=== PATIENT | male | born 1940 | race African-American/Black ===

== ENCOUNTER 2016-03-18 06:35 | Day surgery (SDC) | payer OTHER, MEDICARE ==
[2016-03-16 12:27] VITALS: BMI 26.6
[2016-03-18] MEDS ORDERED: oxyCODONE HCL 10 MG SUSTAINED ACTING TABLET PO STA (06:49)
--- NOTE | 2016-03-18 06:49 | HP ---
History & Physical Update - History History: No Change - Physical Physical: No Change - Assessment Assessment: No Change - Plan Plan: No Change
[2016-03-18] MEDS ORDERED: methylPREDNISolone ACET (DEPO) 40 MG/1 ML VIAL ONE (07:03)
[2016-03-18] MEDS ORDERED: BUPIVACAINE HCL/PF 2.5 MG/ML - 30 ML VIAL IJ ONE (07:04)
[2016-03-18] MEDS ORDERED: GUM MASTIC/STORAX/MSAL/ALCOHOL 1 DRP DROPSBTL MC ONE (07:04)
[2016-03-18] MEDS ORDERED: THROMBIN (BOVINE) 5,000 UNIT VIAL TP ONE (07:05)
[2016-03-18 07:31] VITALS: TEMP 98.3
[2016-03-18] MEDS ORDERED: PROPOFOL 20 ML ONE ×3 (07:37)
--- NOTE | 2016-03-18 09:03 | CONSULT ---
Consultation: REQUESTING PROVIDER: Ovidio Beach (Vascular Surgery) CONSULT REQUEST: We have been asked to surgically evaluate this patient for LLE DVT. HISTORY OF PRESENT ILLNESS: 75 yo male w/ PMHx noted below. Comes to [facility] for scheduled b/l lumbar laminectomy (lumbar radiculopathy/stenosis) today. This morning when I went to interview patient, I discovered that the patient had LLE swelling. Patient states the swelling began four days ago. Upon further questioning, he states he's been relatively immobile secondary to spine pain radiating down right leg. He admits to some calf tenderness. Denies n/v/f/c, CP, palpitations, SOB, cough, JIMENEZ, hemoptysis or melena. PMHx: Lumbar stenosis, DM, HLD and BPH PSHx: Pilonidal Cyst Smoking: Denies Home MEDS: 3 Medication Instructions Recorded Glyburide/Metformin HCl 1 each PO BID 03/16/16 [Glyburide-Metformin 2.5-500 mg] Oxycodone HCl [Roxicodone -] 5 mg PO BID 03/16/16 ALLERGY: NKDA ROS: CONSTITUTIONAL: Absent: SEE ABOVE. Generalized weakness, malaise, loss of appetite, weight change CARDIOVASCULAR: Absent: SEE ABOVE. Syncope, irregular heart rate, lightheadedness RESPIRATORY: Absent: SEE ABOVE. Orthopnea, wheezing, stridor GASTROINTESTINAL:Absent: SEE ABOVE. Hematochezia GENITOURINARY: Absent: dysuria, frequency, urgency, hesitancy, hematuria, flank pain, genital pain MUSCULOSKELETAL: Absent: myalgia, arthralgia, joint swelling, neck pain SKIN: Absent: rash, itching, pallor HEMATOLOGIC/IMMUNOLOGIC: Absent: easy bleeding, easy bruising, lymphadenopathy, frequent infections NEUROLOGIC: Absent: headache, focal weakness, dizziness, seizure PSYCHIATRIC: Absent: anxiety, depression, suicidal or homicidal ideation, hallucinations. Last Vital Signs Temp Pulse Resp BP Pulse Ox 98.3 F 68 18 182/92 97 03/18/16 07:29 03/18/16 07:29 03/18/16 07:29 03/18/16 07:29 03/18/16 07:29 PE GENERAL: Awake, alert, and fully oriented, in no acute distress. HEAD: Normal with no signs of trauma. NECK: Normal ROM, supple without lymphadenopathy or JVD LUNGS: CTA b/l anteriorly HEART: RRR. No murmurs detected. ABDOMEN: Soft, NT, ND, normoactive bowel sounds. MUSCULOSKELETAL: Normal range of motion at all joints. No bony deformities or tenderness. No CVA tenderness. UPPER EXTREMITIES: 2+ pulses, warm, well-perfused. No cyanosis. Cap refill <2 seconds. No peripheral edema. LOWER EXTREMITIES: LLE swelling, mild mid-calf tender to palpation. + Pollo sign. +DP/PT. +1 edema NEUROLOGICAL: Normal speech, gait not observed. PSYCH: Cooperative. Good eye contact. Appropriate mood and affect. LABS: 03/18/16 07:17 POC Glucometer 181 LLE Duplex: (wet read): DVT extending proximal to popliteal Problem List - Problems (1) Deep vein thrombosis (DVT) of left lower extremity Assessment/Plan: Administered 1 dose of Elaquis now. Script for Elaquis 5 mg PO BID escribed. Patient to f/u w/ Dr. Ovidio Beach as out-patient Per Dr. Beach, patient should have IVC filter before spine surgery. Will discuss planning with both Drs. Beach and Ras. Above plan discussed with Dr. Beach and agrees. Code(s): I82.402 - ACUTE EMBOLISM AND THOMBOS UNSP DEEP VEINS OF L LOW EXTREM (2) Lumbar stenosis Assessment/Plan: Will reschedule Laminectomy at later date Code(s): M48.06 - SPINAL STENOSIS, LUMBAR REGION Visit type - Case Type Case Type: Scheduled Admission - New patient This patient is new to me today: Yes Date on this admission: 03/18/16
[2016-03-18 09:12] VITALS: BP 180/88; PULSE 66
[2016-03-18] MEDS ORDERED: APIXABAN 5 MG TABLET PO SCH (10:00)
== END 2016-03-18 09:14 | disposition home or self-care (01) ==
LOC: FASU 06:35
PROVIDERS: ATTEND Orthopaedic Surgery Orthopaedic Surgery of the Spine
PROC: 01NB0ZZ Release Lumbar Nerve, Open Approach (ICD-10-PCS; principal; 2016-03-18)
DX: M48.06 Spinal stenosis, lumbar region (principal); Z53.09 Procedure and treatment not carried out because of other contraindication; I82.402 Acute embolism and thrombosis of unspecified deep veins of left lower extremity; E11.9 Type 2 diabetes mellitus without complications; E78.5 Hyperlipidemia, unspecified; N40.0 Benign prostatic hyperplasia without lower urinary tract symptoms
CPT/HCPCS: 93971-TC

== ENCOUNTER 2016-04-08 09:41 | Day surgery (SDC) | payer OTHER, MEDICARE ==
[2016-04-05 14:52] VITALS: BMI 26.4
[2016-04-08] MEDS ORDERED: oxyCODONE HCL 10 MG SUSTAINED ACTING TABLET PO STA (09:56)
[2016-04-08] MEDS ORDERED: oxyCODONE HCL 10 MG SUSTAINED ACTING TABLET ONE (10:25)
--- NOTE | 2016-04-08 10:48 | HP ---
History & Physical Update - History History: No Change - Physical Physical: No Change - Assessment Assessment: No Change - Plan Plan: No Change
[2016-04-08] MEDS ORDERED: HEPARIN NA (PORCINE) 5,000 UNITS/ML 1ML VIAL ONE (10:51)
[2016-04-08] MEDS ORDERED: LIDOCAINE HCL 1%, 10 MG/ML (20ML VIAL) ONE (10:51)
[2016-04-08] MEDS ORDERED: methylPREDNISolone ACET (DEPO) 40 MG/1 ML VIAL ONE (10:51)
[2016-04-08] MEDS ORDERED: BUPIVACAINE HCL/PF 2.5 MG/ML - 30 ML VIAL IJ ONE (10:51)
[2016-04-08] MEDS ORDERED: THROMBIN (BOVINE) 5,000 UNIT VIAL TP ONE (10:51)
[2016-04-08] MEDS ORDERED: LIDOCAINE 1%-EPI 1:100,000 30 ML MDV IJ ONE (10:52)
[2016-04-08] MEDS ORDERED: MIDAZOLAM HCL 2 MG/2 ML SINGLE DOSE VIAL ONE ×2 (11:04→14:04)
[2016-04-08] MEDS ORDERED: BUPIVACAINE HCL/PF 0.5% (5MG/ML) 10 ML VIAL ONE (11:06)
[2016-04-08] MEDS ORDERED: LIDOCAINE HCL 1%, 10 MG/ML (50 mL VIAL) IJ ONE (13:43)
--- NOTE | 2016-04-08 14:04 | OP ---
Operative Note - Note: Operative Date: 04/08/16 Pre-Operative Diagnosis: DVT Operation: Insertion of IVC filter with venogram Post-Operative Diagnosis: Same as Pre-op Surgeon: Ovidio Beach Anesthesia: Spinal, Fractional Operative Report Dictated: Yes
[2016-04-08] MEDS ORDERED: LIDOCAINE 1%/EPI 1:100000 (50 ML MULTI DOSE VIAL) INF ONE (14:20)
[2016-04-08] MEDS ORDERED: IOHEXOL 300 MG/ML INFUS..BTL IV ONE (14:45)
[2016-04-08] MEDS ORDERED: oxyCODONE HCL 5 MG TABLET PO PRN (15:25)
[2016-04-08] MEDS ORDERED: PROMETHAZINE HCL 25 MG/1 ML VIAL IVPUSH PRN (15:25)
[2016-04-08] MEDS ORDERED: ONDANSETRON 4 MG/2 ML VIAL IVPUSH PRN (15:25)
[2016-04-08] MEDS ORDERED: LACTATED RINGERS SOLUTION 1,000 ML IV SCH (15:30)
[2016-04-08] MEDS ORDERED: GUM MASTIC/STORAX/MSAL/ALCOHOL 1 DRP DROPSBTL MC ONE (15:39)
[2016-04-08] MEDS ORDERED: BUPIVACAINE HCL 0.25% 125 MG/50 ML VIAL INF ONE (15:45)
[2016-04-08] MEDS ORDERED: methylPREDNISolone ACET (DEPO) 40 MG/1 ML VIAL IM ONE (15:46)
--- NOTE | 2016-04-08 15:58 | OP ---
Operative Note - Note: Operative Date: 04/08/16 Pre-Operative Diagnosis: Spinal stenosis L3-L5; lumbar radiculopathy Operation: Lumbar laminectomy L3-L5 Post-Operative Diagnosis: Same as Pre-op Surgeon: Adeel Mcginnis Information Technology Instructor: Hugo Alcantar Anesthesiologist/DEVICE ENGINEER: Sona Barcenas Anesthesia: Spinal Estimated Blood Loss (mls): 25 Fluid Volume Replaced (mls): 1,600 Operative Report Dictated: Yes
--- NOTE | 2016-04-08 15:59 | SURG ---
Surgery Multi Township Assessor Note Multi Township Assessor: Hugo Alcantar PA-C Date of Service: 04/08/16 Diagnosis: Spinal stenosis L3-L5; lumbar radiculopathy Procedure: Lumbar laminiectomy L3-L5 (bilateral) I was present for the entirety of the operative procedure. For further detail, please refer to operative report. Visit type - Case Type Case Type: Scheduled Admission - New patient This patient is new to me today: Yes Date on this admission: 04/08/16
[2016-04-08] MEDS ORDERED: ACETAMINOPHEN 1000 MG/100 ML VIAL (NON FORMULARY) IVPB ONE ×2 (16:01→16:12)
[2016-04-08] MEDS ORDERED: ACETAMINOPHEN INJECTION 100 ML IVPB ONE (16:07)
[2016-04-08 18:19] VITALS: PULSE 56; TEMP 97.5
[2016-04-08 20:02] VITALS: BP 136/78
--- NOTE | 2016-04-09 15:25 | OP ---
DATE OF OPERATION: 04/08/2016 PREOPERATIVE DIAGNOSIS: Spinal stenosis, L3-L4, L4-L5. POSTOPERATIVE DIAGNOSIS: Spinal stenosis, L3-L4, L4-L5. PROCEDURES PERFORMED: 1. Laminectomy, L3-L4, L4-L5. 2. Placement of inferior vena cava filter. SURGEONS: Adeel Mcginnis MD; Ovidio Beach DO SPEECH THERAPIST TECHNICIAN: KRISTINE Mcmanus ESTIMATED BLOOD LOSS: 50 mL INTRAVENOUS FLUIDS: Per Anesthesia. ANESTHESIA: Spinal. COMPLICATIONS: None. DISPOSITION: The patient was brought to the PACU in stable condition. INDICATIONS FOR SURGERY: The patient is a 75-year-old gentleman who had previously been scheduled for a laminectomy. On the day of surgery, he was noted to have a swollen leg. A duplex was performed which noted that he had a clot in his left leg. He was placed on Xarelto at that time. We discussed the matter with the vascular surgeons and the patient wanted to proceed with surgery. We discussed the placement of an IVC filter and taking him off of Xarelto. The risks and benefits of placement of the filter were discussed with both the patient and his and they consented to surgery. DESCRIPTION OF PROCEDURE: The patient was brought to the operating room by the Anesthesia staff. After appropriate patient identification was performed, spinal anesthesia was given. Dr. Beach performed the IVC filter placement and this will be dictated in a separate note. After the filter was placed, the patient was placed prone onto the Jere frame with all areas of bony prominences well padded at this time. At this time, two needles were placed into his back to александр off the L3 and L5 segment and an x-ray was taken to confirm this was correct. The needle was removed and 10 mL of lidocaine with epinephrine were injected into his back at this time. His back was prepped and draped in a sterile manner. At this point, a timeout was completed. An incision was made from the top of L4 down to the bottom of L5. Dissection was carried down to the fascia. The fascia was split open at this time and appropriate retractors were then placed in. A spinal needle was placed onto the L3 lamina to александр off the L3-4 level. An x-ray was taken to confirm this was correct. The needle was removed and the microscope was brought in. At this point, the interspinous ligament at L3-4 and L4-5 was removed. The spinous process of L4 was removed. A bur was used to remove the lamina of L4. The flavum was identified; it was removed. A complete decompression was performed at this point, such that by the end of the procedure, the L4 and the L5 nerve roots appeared to be well decompressed. All bleeding was well controlled at this time. Steroids was placed over the nerve root and Floseal was placed over that. The fascia was closed with a number 1 Vicryl suture. The subcutaneous tissue was closed with 2-0 Vicryl suture. The skin was closed with 3-0 Monocryl suture. Dermabond was applied. Steri-Strips were applied. A sterile dressing was applied. The patient was placed spine on the OR bed and brought to the PACU in stable condition. Cristobal EGAN/[id number] MTDD
== END 2016-04-08 19:50 | disposition home or self-care (01) ==
LOC: FASU 09:41
PROVIDERS: ATTEND Orthopaedic Surgery Orthopaedic Surgery of the Spine
PROC: 01NB0ZZ Release Lumbar Nerve, Open Approach (ICD-10-PCS; principal; 2016-04-08 11:30)
PROC: 06H03DZ Insertion of Intraluminal Device into Inferior Vena Cava, Percutaneous Approach (ICD-10-PCS; 2016-04-08 11:30)
DX: M48.06 Spinal stenosis, lumbar region (principal); I82.402 Acute embolism and thrombosis of unspecified deep veins of left lower extremity
CPT/HCPCS: 37191; 63047; 63048; C1880; 72100-TC; 76001-TC; 94760; J1644

== ENCOUNTER 2016-08-23 06:46 | Inpatient (IN) | payer OTHER, MEDICARE ==
[2016-08-13 16:02] VITALS: BMI 26.9
[2016-08-23] MEDS ORDERED: BUPIVACAINE HCL/PF 2.5 MG/ML - 30 ML VIAL IJ ONE (07:13)
[2016-08-23] MEDS ORDERED: GUM MASTIC/STORAX/MSAL/ALCOHOL 1 DRP DROPSBTL MC ONE (07:13)
[2016-08-23] MEDS ORDERED: oxyCODONE HCL 10 MG SUSTAINED ACTING TABLET PO ONE (07:26)
[2016-08-23] MEDS ORDERED: oxyCODONE HCL 10 MG SUSTAINED ACTING TABLET ONE (07:31)
[2016-08-23] MEDS ORDERED: MIDAZOLAM HCL 2 MG/2 ML SINGLE DOSE VIAL ONE (07:45)
[2016-08-23] MEDS ORDERED: SUCCINYLCHOLINE CHLORIDE 200 MG/10 ML VIAL ONE (07:46)
--- NOTE | 2016-08-23 07:58 | HP ---
History & Physical Update - History History: No Change - Physical Physical: No Change - Assessment Assessment: No Change - Plan Plan: No Change (SCD to RLE, pt iwth h/o of LLE DVT. On xarelto but held for 5 day. s/p IV filter)
[2016-08-23] MEDS ORDERED: ceFAZolin SODIUM 1 GM VIAL ONE (08:34)
[2016-08-23] MEDS ORDERED: LIDOCAINE 1%/EPI 1:100000 (50 ML MULTI DOSE VIAL) INF ONE (08:50)
[2016-08-23] MEDS ORDERED: PROPOFOL 20 ML ONE ×2 (10:47)
[2016-08-23] MEDS ORDERED: BUPIVACAINE HCL/PF 0.25% (2.5MG/ML) 10 ML VIAL IJ ONE (11:46)
[2016-08-23] MEDS ORDERED: ONDANSETRON 4 MG/2 ML VIAL IVPB PRN (12:38)
[2016-08-23] MEDS: ACETAMINOPHEN 1000 MG/100 ML VIAL (NON FORMULARY) IVPB ONE ×2 (12:53→16:53)
[2016-08-23] MEDS: diazePAM 5 MG TABLET PO ONE ×2 (12:54→13:48)
--- NOTE | 2016-08-23 12:54 | OP ---
Operative Note - Note: Operative Date: 08/23/16 Pre-Operative Diagnosis: lumbar spondylolithisthesis Operation: s/p L4-L5, L5-S1 decompression, fusion/instrumentation, transforaminal lumbar interbody fusion L4-L5, L5-S1 with allograft and neuromonitoring Post-Operative Diagnosis: Same as Pre-op Surgeon: Adeel Mcginnis Dryer Operator: Lauryn Brigdes Anesthesiologist/GROUNDS/MAINTENANCE SPECIALIST: Heidy Mcgill Anesthesia: Spinal Estimated Blood Loss (mls): 30 Fluid Volume Replaced (mls): 1,700 Operative Report Dictated: Yes
--- NOTE | 2016-08-23 12:56 | SURG ---
Surgery Egg Tester Note Egg Tester: Lauryn Bridges PA-C Date of Service: 08/23/16 Diagnosis: lumbar spondylolithisthesis Procedure: s/p L4-L5, L5-S1 decompression, fusion/instrumentation, transforaminal lumbar interbody fusion L4-L5, L5-S1 with allograft and neuromonitoring I was present for the entirety of the operative procedure. For further detail, please refer to operative report. Visit type - Case Type Case Type: Scheduled Admission - Emergency Emergency Visit: No - New patient This patient is new to me today: Yes Date on this admission: 08/23/16 - Critical Care Critical Care patient: No
[2016-08-23] MEDS: SODIUM CHLORIDE 1,000 ML IV SCH (13:48)
[2016-08-23] MEDS: oxyCODONE HCL 5 MG TABLET PO PRN (14:12)
[2016-08-23] MEDS: LACTATED RINGERS SOLUTION 1,000 ML IV SCH (14:14)
[2016-08-23] MEDS: traMADol HCL 50 MG TABLET PO PRN ×2 (16:42→20:57)
[2016-08-23] MEDS: CEFAZOLIN 1 GM/D5W 50 ML IVPB SCH (16:42)
[2016-08-23] MEDS: metFORMIN HCL 500 MG TABLET (FP) PO SCH (16:42)
[2016-08-23] MEDS: glyBURIDE 5 MG TABLET (UD) PO SCH (16:42)
[2016-08-23] MEDS: CYCLOBENZAPRINE HCL 10 MG TABLET (FP) PO PRN (20:57)
[2016-08-23] MEDS: ACETAMINOPHEN 325 MG TABLET (FP) PO SCH (20:59)
[2016-08-23] MEDS ORDERED: PATIENT'S OWN MEDICATION (NON-FORMULARY) (Glyburide/Metformin Hcl [Glyburide-Metformin 2.5 PO SCH (22:00)
[2016-08-24] MEDS: oxyCODONE HCL 5 MG TABLET PO PRN ×3 (00:04→11:20)
[2016-08-24] MEDS: CEFAZOLIN 1 GM/D5W 50 ML IVPB SCH (00:04)
[2016-08-24] MEDS: ACETAMINOPHEN 325 MG TABLET (FP) PO SCH ×3 (03:23→13:54)
[2016-08-24] MEDS: CYCLOBENZAPRINE HCL 10 MG TABLET (FP) PO PRN ×2 (05:56→13:54)
[2016-08-24 06:39] VITALS: BP 146/91; PULSE 65; TEMP 99
[2016-08-24] MEDS: metFORMIN HCL 500 MG TABLET (FP) PO SCH (06:40)
[2016-08-24] MEDS: glyBURIDE 5 MG TABLET (UD) PO SCH (06:41)
[2016-08-24] MEDS: traMADol HCL 50 MG TABLET PO PRN ×2 (08:43→13:54)
--- NOTE | 2016-08-24 09:09 | PN ---
Progress Note (short form) - Note Progress Note: POD #1 Patient sitting in chair at bedside this morning. C/o of incisional pain as well as hip pain (L>R). States he has ambulated hallways...needs help rising from seated position (prior to surgery he was able to perform same task unassisted). He is voiding spontaneously. Informs me that the tingling sensation to his LLE has slightly improved. Denies n/v/f/c, CP or SOB. Last Vital Signs Temp Pulse Resp BP Pulse Ox 99.0 F 65 20 146/91 98 08/24/16 06:00 08/24/16 06:00 08/24/16 06:00 08/24/16 06:00 08/24/16 06:38 Drain Output 08/23/16 08/23/16 08/23/16 08/24/16 15:00 19:43 22:10 06:00 Hemovac 80 30 40 100 PE Gen: alert. nad. Skin: dressing c/d/i. Hemovac output recorded above. No hematoma. Neuro: GMNI bilateral <Hugo Alcantar P - Last Filed: 08/24/16 09:19> - Note Progress Note: Patient seen and examined Agree with above D/C Planning <Adeel Mcginnis - Last Filed: 08/26/16 12:02> Problem List - Problems (1) Spondylolisthesis, lumbar region Assessment/Plan: s/p L4-L5, L5-S1 decompression, fusion/instrumentation, transforaminal lumbar interbody fusion L4-L5, L5-S1 with allograft and neuromonitoring Drain off suction but will remain in place. Re-check out put in 2 hrs. Lumbar xray Pain management as ordered Awaiting PT recommendations Above discussed with Dr. Mcginnis and agrees, Code(s): M43.16 - SPONDYLOLISTHESIS, LUMBAR REGION <Hugo Alcantar P - Last Filed: 08/24/16 09:19>
[2016-08-24 09:58] LABS: MCH 30.5 pg (25.7-33.7); MCHC 33.1 g/dl (32.0-35.9); MEAN CELL VOLUME 92.1 fl (80-96); PLATELET COUNT 131 K/MM3 (134-434); RDW 12.9 % (11.9-15.9); WHITE BLOOD COUNT 10.4 K/mm3 (4.0-10.8)
[2016-08-24 10:05] LABS: CALCIUM 9.1 mg/dl (8.4-10.2); COCKROFT - GAULT 95.54; CREATININE 0.9 mg/dl (0.6-1.3)
--- NOTE | 2016-08-24 12:36 | DS ---
Physical Exam: SUBJECTIVE: POD #1. Patient seen and examined OBJECTIVE: Last Vital Signs Temp Pulse Resp BP Pulse Ox 99.0 F 65 20 146/91 98 08/24/16 06:00 08/24/16 06:00 08/24/16 09:00 08/24/16 06:00 08/24/16 09:00 PE GENERAL: awake, alert, and fully oriented, in no acute distress. HEAD: Normal with no signs of trauma. EYES: PERRL, extraocular movements intact, sclera anicteric, conjunctiva clear. NECK: Trachea midline, full range of motion, supple. LUNGS: Breath sounds equal, clear to auscultation bilaterally, no wheezes, no crackles, no accessory muscle use. HEART: RRR ABDOMEN: Soft, nontender, nondistended, normoactive bowel sounds EXTREMITIES: 2+ pulses, warm, well-perfused, no edema. NEUROLOGICAL: CN II - XII grossly intact. Normal speech, ambulating with walker assist device. PSYCH: Normal mood, normal affect. SKIN: dressing c/d/i. No hematoma. LABS CBC,CMP WBC 10.4 K/mm3 (4.0-10.8) 08/24/16 07:37 RBC 3.94 M/mm3 (4.00-5.60) L 08/24/16 07:37 Hgb 12.0 GM/dl (11.7-16.9) 08/24/16 07:37 Hct 36.3 % (35.4-49) 08/24/16 07:37 MCV 92.1 fl (80-96) 08/24/16 07:37 MCHC 33.1 g/dl (32.0-35.9) 08/24/16 07:37 RDW 12.9 % (11.9-15.9) 08/24/16 07:37 Plt Count 131 K/MM3 (134-434) L 08/24/16 07:37 MPV 10.0 fl (7.5-11.1) 08/24/16 07:37 Sodium 135 mmol/L (136-145) L 08/24/16 07:37 Potassium 3.9 mmol/L (3.5-5.1) 08/24/16 07:37 Chloride 101 mmol/L (98-107) 08/24/16 07:37 Carbon Dioxide 26 mmol/L (22-28) 08/24/16 07:37 Anion Gap 8 (8-16) 08/24/16 07:37 BUN 16 mg/dl (7-18) 08/24/16 07:37 Creatinine 0.9 mg/dl (0.6-1.3) 08/24/16 07:37 POC Glucometer 140 UNITS (()) 08/24/16 06:00 Random Glucose 150 mg/dl (74-106) H 08/24/16 07:37 Calcium 9.1 mg/dl (8.4-10.2) 08/24/16 07:37 HOSPITAL COURSE: Date of Admission:08/23/16 Date of Discharge: 08/24/16 The patient was admitted to the Med-Surg Unit after an elective repair of their lumbar spondylolithesis. Now, s/p L4-L5, L5-S1 decompression, fusion/ instrumentation, transforaminal lumbar interbody fusion L4-L5, L5-S1 with allograft and neuromonitoring. The day of surgery, the patient ambulated the hallways with assistance. Narcotic and non-narcotic pain management control was achieved with an oral and IV approach. POD #1, the surgical drain was removed fully intact and without incident. An xray was obtained and confirmed hardware placement at L4-L5, L5-S1, no fractures or dislocations. Reyna-operative IV ABX were administered. DVT prophylaxis was achieved with SCDs and early ambulation. The patient ambulated with Physical Therapy and recommended patien tset-up physical therapy as out-patient. Narcotic scripts and or muscle relaxants were checked with NJS MANAGER QA prior to escribe. The discharge instructions and an oral pain management plan were reviewed with the patient. All questions answered. Above plan discussed with Dr. Mcginnis and agreed. Minutes to complete discharge: 20 Visit type - Case Type Case Type: Scheduled Admission
--- NOTE | 2016-08-24 12:36 | PN ---
Progress Note, Physician Chief Complaint: s/o lumbar fusion under spinal anesthesia History of Present Illness: post op day one - Current Medication List Current Medications: Active Medications Acetaminophen (Tylenol -) 650 mg PO Q6H ELMO Last Admin: 08/24/16 08:43 Dose: 650 mg Cyclobenzaprine HCl (Flexeril -) 10 mg PO Q8H PRN PRN Reason: MUSCLE SPASMS Stop: 08/24/16 17:59 Last Admin: 08/24/16 05:56 Dose: 10 mg Fentanyl (Sublimaze Injection -) 50 mcg IVPUSH [id number] PRN PRN Reason: PAIN Stop: 08/26/16 13:40 Glyburide (Diabeta -) 2.5 mg PO BIDAC ELMO Last Admin: 08/24/16 06:41 Dose: 2.5 mg Sodium Chloride (Normal Saline -) 1,000 mls @ 75 mls/hr IV ASDIR ELMO Last Admin: 08/23/16 13:48 Dose: Not Given Lactated Ringer's (Lactated Ringers Solution) 1,000 mls @ 75 mls/hr IV ASDIR ELMO Last Admin: 08/23/16 14:14 Dose: 75 mls/hr Metformin HCl (Glucophage -) 500 mg PO BIDAC ELMO Last Admin: 08/24/16 06:40 Dose: 500 mg Ondansetron HCl (Zofran Injection) 4 mg IVPB Q6H PRN PRN Reason: NAUSEA AND/OR VOMITING Oxycodone HCl (Roxicodone -) 5 mg PO Q4H PRN PRN Reason: PAIN Last Admin: 08/24/16 05:57 Dose: 5 mg Tramadol HCl (Ultram -) 50 mg PO Q4H PRN Last Admin: 08/24/16 08:43 Dose: 50 mg - Objective Vital Signs: Vital Signs Temperature 99.0 F 08/24/16 06:00 Pulse Rate 65 08/24/16 06:00 Respiratory Rate 20 08/24/16 09:00 Blood Pressure 146/91 08/24/16 06:00 O2 Sat by Pulse Oximetry (%) 98 08/24/16 09:00 Constitutional: Yes: Well Nourished, No Distress Cardiovascular: Yes: WNL Respiratory: Yes: WNL Gastrointestinal: Yes: WNL Labs: CBC, BMP 08/24/16 07:37 08/24/16 07:37 Assessment/Plan Patient doing well, pain controlled with oral analgesics, no nausea or vomiting , motor sensory function back to normal, no adverse effect from anesthetic. Dept of anesthesia will sign off care at this time.
--- NOTE | 2016-08-24 13:26 | OP ---
DATE OF OPERATION: 08/23/2016 PREOPERATIVE DIAGNOSIS: Spinal stenosis L4-5, L5-S1. POSTOPERATIVE DIAGNOSIS: Spinal stenosis L4-5, L5-S1. PROCEDURE PERFORMED: 1. Transforaminal lumbar interbody fusion, L4-5. 2. Transforaminal lumbar interbody fusion, L5-S1. 3. Placement of instrumentation, L4 to S1. 4. Revision laminectomy, L4-5. 5. Laminectomy, L5-S1. 6. Placement of prosthetic cages. SURGEON: Adeel Mcginnis MD DRESSAGE INSTRUCTOR: KRISTINE Duran ESTIMATED BLOOD LOSS: 100 mL. IV FLUIDS: Per Anesthesia. ANESTHESIA: Spinal. COMPLICATIONS: None. DISPOSITION: The patient brought to the PACU in stable condition. INDICATIONS FOR SURGERY: Mr. Trujillo is a 76-year-old gentleman who has been suffering from pain from his back down to his legs. He had previously undergone laminectomy and had done well from that but he continued to have some pain from his back down to his legs. X-rays and MRI were completed which noted that he had spinal cervical stenosis from L4 to S1. He had gone through an exhaustive course of treatment for this which included medications, physical therapy, as well as multiple injections. Unfortunately, his pain continued to persist despite all this. At this point, risks, benefits and alternatives were discussed and the patient consented to surgery. OPERATIVE NOTE: The patient was brought to the operating room by the anesthesia staff. After appropriate patient identification was performed, spinal anesthesia was given and the patient was placed prone onto the Jere frame with all areas of bony prominences well padded at this time. Two needles were placed into his back to александр off the L4 and S1 segments. The C-arm was brought in and the L4, L5, S1 pedicles were marked. Then, 10 mL of lidocaine with epinephrine were injected into his back. At this time, his back was prepped and draped in a sterile manner. At this point, a timeout was completed. An incision was made from the top of L4 down to the bottom of S1. Dissection was carried down to the fascia. The fascia was split open at this time. Under C-arm guidance, trocars were advanced to the L4 , L5 and S1 pedicles. Wires were inserted through the trocars. Over the wires, tap was performed and screws were inserted. On the right-hand side, retractor blades were placed to expose the L5-S1 facet joint. The facet joint was removed with the osteotome and bur. The disk was entered using a series of pituitaries, Kerrisons and curettes and diskectomy was completed. Bone graft was laid down. The cage filled with bone graft was placed in. Next, at the L4-5 level, the facet joint was visualized. The facet joint was removed. Using a series of pituitaries, Kerrisons and curettes, a the diskectomy was completed. End plates were decorticated at this time. Bone graft was laid in and the cage was measured and placed in. Next, tulip heads were placed on the screws. A christophe was measured and placed in. Caps were placed on. Final tightening and compression were applied. On the left-hand side, the christophe was measured and placed in and caps were placed on. Compression and final tightening were performed. All extra instrumentation was removed at this time. AP and lateral x-rays confirmed the instrumentation to be in good position. The fascia was closed with No. 1 Vicryl suture. A drain was placed. The subcutaneous tissue was closed with 2-0 Vicryl. Skin was closed with 3-0 Monocryl suture. Dermabond was applied. Steri-Strips were applied and dry sterile dressing was applied. The patient was placed supine on the bed and brought to the PACU in stable condition. Cristobal [id number] MTDD
[2016-08-24] MEDS: LACTATED RINGERS SOLUTION 1,000 ML IV SCH (13:54)
[2016-08-24] MEDS: SODIUM CHLORIDE 1,000 ML IV SCH (13:55)
== END 2016-08-24 14:50 | disposition home or self-care (01) | DRG 460 ==
LOC: FM/S 06:46
PROVIDERS: ADMIT Orthopaedic Surgery Orthopaedic Surgery of the Spine; ATTEND Orthopaedic Surgery Orthopaedic Surgery of the Spine
PROC: 0SG30K1 Fusion of Lumbosacral Joint with Nonautologous Tissue Substitute, Posterior Approach, Posterior Column, Open Approach (ICD-10-PCS; 2016-08-23)
PROC: 0ST20ZZ Resection of Lumbar Vertebral Disc, Open Approach (ICD-10-PCS; 2016-08-23)
PROC: 4A11X4G Monitoring of Peripheral Nervous Electrical Activity, Intraoperative, External Approach (ICD-10-PCS; 2016-08-23)
PROC: 0SG00K1 Fusion of Lumbar Vertebral Joint with Nonautologous Tissue Substitute, Posterior Approach, Posterior Column, Open Approach (ICD-10-PCS; principal; 2016-08-23 08:15)
DX: M48.07 Spinal stenosis, lumbosacral region (principal); Z86.718 Personal history of other venous thrombosis and embolism; Z79.01 Long term (current) use of anticoagulants; M43.16 Spondylolisthesis, lumbar region; E11.49 Type 2 diabetes mellitus with other diabetic neurological complication; E11.319 Type 2 diabetes mellitus with unspecified diabetic retinopathy without macular edema; Z79.84 Long term (current) use of oral hypoglycemic drugs
CPT/HCPCS: 36415; 72100-TC; 76001-TC; 80048; 85027; 94010; 94760; 97116-GP; 97162-PG

== ENCOUNTER 2016-09-28 17:19 | Inpatient (IN) | payer OTHER, MEDICARE ==
--- NOTE | 2016-09-28 17:26 | PDOC ---
History of Present Illness - General Chief Complaint: Shortness of Breath Stated Complaint: SHORTNESS OF BREATH Time Seen by Provider: 09/28/16 17:23 History Source: Patient Exam Limitations: No Limitations - History of Present Illness Initial Comments: 09/28/16 17:26 Patient is a 76 y.o. male with a PMH of recent (08/23/16) spinal fusion as well as DVT s/p laminectomy (03/2016 @ [facility] with Dr. Ham) who presents from his PCP office for evaluation given his 3 day h/o of shortness of breath. Patient's notes patient stopped his Xarelto five days prior to his fusion and has not restarted the medication post-operatively. She also notes patient has an IVC filter. Patient states the shortness of breath is present with exertion including climbing stairs at home and upon presentation patient is short of breath from walking from the car to the ED. Patient denies any fever , cough, chest pain though he does note an associated lightheadedness. Timing/Duration: other (3 days) Severity: moderate Modifying Factors: improves with: rest Past History - Past Medical History Allergies/Adverse Reactions: Allergies Allergy/AdvReac Type Severity Reaction Status Date / Time No Known Drug Allergies Allergy Verified 09/28/16 17:21 Home Medications: Ambulatory Orders Glyburide/Metformin HCl [Glyburide-Metformin 2.5-500 mg] 1 each PO BID 03/16/16 Rivaroxaban [Xarelto] 20 mg PO DAILY #150 tab.ds.pk MDD 1 03/22/16 Anemia: No Asthma: No Cancer: No Cardiac Disorders: No CVA: No COPD: No CHF: No Dementia: No Diabetes: Yes (x10 yrs) GI Disorders: No Disorders: No HTN: No Hypercholesterolemia: No Liver Disease: No Seizures: No Thyroid Disease: No - Surgical History Abdominal Surgery: No Appendectomy: No Cardiac Surgery: No Cholecystectomy: No Lung Surgery: No Neurologic Surgery: Yes (laminectomy) Orthopedic Surgery: No - Psycho/Social/Smoking Cessation Hx Smoking History: Never smoked Have you smoked in the past 12 months: No Hx Alcohol Use: No Drug/Substance Use Hx: No Substance Use Type: None Hx Substance Use Treatment: No Review of Systems - Review of Systems Constitutional: No: Chills, Fever, Malaise, Night Sweats HEENTM: No: Blurred Vision, Tinnitus, Hearing Loss, Throat Pain Respiratory: Yes: SOB with Exertion, Other (No cough, no wheezing, orthopnea) Cardiac (ROS): Yes: Lightheadedness. No: Chest Pain, Edema, Palpitations ABD/GI: No: Constipated, Diarrhea, Nausea, Vomiting : No: Burning, Dysuria, Frequency, Hematuria Musculoskeletal: No: Back Pain, Joint Swelling, Muscle Pain, Muscle Weakness Integumentary: No: Bruising, Dryness, Erythema, Flushing Neurological: No: Headache, Numbness, Tingling, Tremors Psychiatric: No: Anxiety, Depression All Other Systems: Reviewed and Negative *Physical Exam - Physical Exam General Appearance: Yes: Nourished, Appropriately Dressed HEENT: positive: EOMI, LISE Neck: positive: Trachea midline, Supple Respiratory/Chest: positive: Lungs Clear, Normal Breath Sounds Cardiovascular: positive: Regular Rhythm, Regular Rate, S1, S2 Gastrointestinal/Abdominal: positive: Normal Bowel Sounds, Soft Extremity: positive: Other (LLE 2+ swelling; patient notes this is his baseline s/p DVT ) Neurologic: positive: electrical mechanical technician II-XII NML intact, Fully Oriented, Alert ED Treatment Course - LABORATORY CBC & Chemistry Diagram: 09/28/16 18:01 09/28/16 18:01 Medical Decision Making - Medical Decision Making 09/28/16 17:44 Patient is a 76 y.o. male s/p spinal fusion on 08/23/16 as well as h/o DVT in March 2016 following laminectomy who presents with a 3 day h/o of shortness of breath. Differential Dx includes anemia (lightheadedness) vs. PE (s/p recent surgical intervention + h/o DVT) vs. pneumonia (less likely as patient denies cough and fever) vs acute renal failure. PE significant for LLE swelling (patient's notes this is present since his DVT). Preliminary read of CXR in ED showed no infiltrate or acute abnormality. CTA Angiogram pending at time of signout; patient signed out to Dr. Loving *DC/Admit/Observation/Transfer Diagnosis at time of Disposition: Shortness of breath - Discharge Dispostion Condition at time of disposition: Fair
--- NOTE | 2016-09-28 17:46 | PDOC ---
Attending Attestation - Resident Resident Name: RickeyFern - ED Attending Attestation I have performed the following: I have examined & evaluated the patient, The case was reviewed & discussed with the resident, I agree w/resident's findings & plan, Exceptions are as noted - HPI HPI: 09/28/16 17:40 76 yo M with h/o HTN HLD s/p laminectomy 03/30 complicated by left leg dvt, and recent spinal fusion 08/23/16, DR Adeel Mcginnis here today with 3 days worsening sob. slow and progressive. worse with exertion, not positional. denies cough chest pain or fever. has had left leg swelling, which he has had since his DVT. pt was on xarelto , but discontinued prior to fusion surgery in August, and did not resume following surgery. has IVC filter in place. no urinary compoaints. no bleeding. was seen today at [facility], and sent to ED for evaluation. pcp DR Monet - Physicial Exam PE: 09/28/16 17:46 pt awake alert, no acute distress, lungs clear , no wheezing no crackles. heart RRR no m/r/g abd soft nt nd. left lower mild edema ( chronic) to foot only, nonpitting. right leg no edema. 2+ dp/ pt pulses bilat symmetric. - Medical Decision Making 09/28/16 17:44 76 yo M h/o DM HTN HLD prior dvt with filter, 6 weeks post op from laminectomy with sob. differential is anemia, infection such as pna, or uti, OK or CHF, worsening renal failure, PE ( less likely due IVC filter ) . plan ekg, labs cbc trop cmp, cxr , coags, will consider CT Angio pending cxr findings. will d/w DR Monet pt pcp. Heart Score/ECG Review #1 General ECG Interpretation: Sinus Rhythm, Normal Rate (73), Normal Intervals, No acute ischemic changes Compared to previous ECG there are: Previous ECG unavail (RBBB, TWI AVL,) - [place]: Left [place] Deviation
[2016-09-28 18:27] LABS: BASOPHIL 1.5 % (0-2.0); EOSINOPHIL 4.1 % (0-4.5); MCH 30.5 pg (25.7-33.7); MCHC 34.5 g/dl (32.0-35.9); MEAN CELL VOLUME 88.4 fl (80-96); MEAN PLT VOLUME 10.3 fl (7.5-11.1); NEUTROPHILS 50.9 % (42.8-82.8); PLATELET COUNT 190 K/MM3 (134-434); RDW 13.5 % (11.9-15.9); WHITE BLOOD COUNT 7.9 K/mm3 (4.0-10.8)
[2016-09-28 19:05] LABS: ACTIVATED PTT 32.5 SECONDS (24.0-38.9)
[2016-09-28 19:10] LABS: CPK(DFH) 78 IU/L (38-174); INR 1.11 (0.82-1.09); PROTHROMBIN TIME (PATIENT) 12.4 SEC (10.2-13.0)
[2016-09-28 19:11] LABS: ALBUMIN 3.9 g/dl (3.5-5.0); ALK PHOS 83 U/L (32-92); ANION GAP 5 (8-16); BILIRUBIN,TOTAL 0.5 mg/dl (0.2-1.0); CALCIUM 9.6 mg/dl (8.4-10.2); CO2 25 mmol/L (22-28); CREATININE 1.2 mg/dl (0.6-1.3); GLUCOSE,RANDOM 153 mg/dl (74-106); SGOT/AST 19 U/L (10-42); SGPT/ALT 9 U/L (10-40); TOT PROT 6.7 g/dl (6.4-8.3)
--- NOTE | 2016-09-28 19:18 | PDOC ---
*Physical Exam - Vital Signs Last Vital Signs Temp Pulse Resp BP Pulse Ox 98.5 F 79 16 153/83 100 09/28/16 17:20 09/28/16 17:20 09/28/16 17:20 09/28/16 17:20 09/28/16 17:20 ED Treatment Course - LABORATORY CBC & Chemistry Diagram: 09/28/16 18:01 09/28/16 18:41 - ADDITIONAL ORDERS Additional order review: Laboratory Results 09/28/16 09/28/16 09/28/16 18:41 18:41 18:41 INR 1.11 PTT (Actin FS) 32.5 Sodium 135 L Potassium 4.7 D Chloride 105 Carbon Dioxide 25 Anion Gap 5 L BUN 29 H D Creatinine 1.2 D Creat Clearance w eGFR 59.02 Random Glucose 153 H Calcium 9.6 Total Bilirubin 0.5 AST 19 ALT 9 L Alkaline Phosphatase 83 Creatine Kinase 78 Total Protein 6.7 Albumin 3.9 09/28/16 18:01 RBC 4.31 MCV 88.4 MCHC 34.5 RDW 13.5 MPV 10.3 Neutrophils % 50.9 Lymphocytes % 33.9 Monocytes % 9.6 Eosinophils % 4.1 Basophils % 1.5 Progress Note - Progress Note Progress Note: This patient was transferred to mt from Dr. Carballo. Patient was initially seen by the resident in conjunction with Dr. Carballo. Patient has moderate to severe dyspnea on exertion. When patient is resting comfortably patient's O2 sats and vitals are normal. However as soon as patient exerts himself he becomes markedly dyspneic. Patient has a workup including chest x-ray, labs, EKG and CT Demetri to rule out PE. Patient has a IVC filter. Given patient's dyspnea on exertion the plan is that patient will be admitted to to either an inpatient bed or placed in observation depending upon the results of the workup. CAT scan shows a right lower lobe pulmonary embolism Discussed with patient's surgeon Dr. Mcginnis. Who is requesting the patient be admitted to a telemetry bed under the service of [facility]. *DC/Admit/Observation/Transfer Diagnosis at time of Disposition: Shortness of breath Pulmonary embolism Qualifiers: Pulmonary embolism type: other Chronicity: acute Acute cor pulmonale presence: without acute cor pulmonale Qualified Code(s): I26.99 - Other pulmonary embolism without acute cor pulmonale - Discharge Dispostion Condition at time of disposition: Fair Admit: Yes
[2016-09-28 19:24] LABS: TROPONIN I (DFP) < 0.03 ng/ml (0.03-0.50)
[2016-09-28 21:04] LABS: URINE BILIRUBIN Negative (NEGATIVE); URINE BLOOD 2+ (NEGATIVE); URINE GLUCOSE (UA) Negative (NEGATIVE); URINE KETONE Negative (NEGATIVE); URINE LEUK ESTERASE 3+ (NEGATIVE); URINE NITRITE Negative (NEGATIVE); URINE PROTEIN 1+ (NEGATIVE); URINE UROBILINOGEN 0.2 (0.2-1.0)
[2016-09-28 21:05] LABS: URINE APPEARANCE SL CLOUDY; URINE COLOR YELLOW
[2016-09-28 21:14] LABS: URINE RBC 20-30 /hpf (0-3); URINE WBC 40-60 (3-5)
[2016-09-28 21:15] LABS: URINE BACTERIA FEW /hpf (NEGATIVE)
[2016-09-28 22:29] VITALS: BMI 24.3
[2016-09-28] MEDS: ENOXAPARIN NA (PORCINE) 100 MG/1 ML DISP.SYRIN SQ SCH (23:41)
--- NOTE | 2016-09-28 23:52 | HP ---
CHIEF COMPLAINT: SOB PCP: Dr. Monet @ [facility], Surgeon: Dr. Mcginnis, [facility] Surgeon: Rhiannon @ [facility] HISTORY OF PRESENT ILLNESS: This is a 76 year old male with a past medical history of diabetes, DVT and recent spinal fusion presented with SOB x 3 days. Pt reports that on Tuesday he started noticing he would get SOB on exertion: walking around house or upstairs. Pt denies chest pain, palpitations, N/V/D. Pt reports mild edema LLE ever since DVT, sometimes edema worse than others. Pt also reports that prior to his spinal fusion on 08/23 he was on xarelto. He stopped his xarelto 4 days prior to surgery but he was never told to restart it and as such has been off his xarelto since. ER course was notable for: (1) CTA c/w PE Recent Travel: pt denies PAST MEDICAL HISTORY: DVT - diagnosed 03/18/16, tx with xarelto DM denies HTN HLD, but H&P from preop lists HLD BPH (as per scanned H&P from 03/18/16) CKD stage 2 (as per scanned H&P from 03/18/16) baseline creatinine appears to be around 1 PAST SURGICAL HISTORY: Lumbar laminectomy 04/08/2016 IVC filter 04/08/16 L4-L5 L5-S1 decompression and fusion 08/23/16 Social History: Smoking: smoked as a "boy", stopped 50+ years ago Alcohol: denies Drugs: denies Family History: mother age 98, old age, had DM father age 86, unknown type (in [place]) 1 sister with DM, 9 other siblings without issues 2 children without medical problems Allergies No Known Drug Allergies Allergy (Verified 09/28/16 17:21) HOME MEDICATIONS: 3 Medication Instructions Recorded Glyburide/Metformin HCl 1 each PO BID 03/16/16 [Glyburide-Metformin 2.5-500 mg] Rivaroxaban [Xarelto] 20 mg PO DAILY #150 tab.ds.pk MDD 1 03/22/16 REVIEW OF SYSTEMS CONSTITUTIONAL: Absent: fever, chills, diaphoresis, generalized weakness, malaise, loss of appetite, weight change HEENT: Absent: rhinorrhea, nasal congestion, throat pain, throat swelling, difficulty swallowing, mouth swelling, ear pain, eye pain, visual changes CARDIOVASCULAR: Absent: chest pain, syncope, palpitations, irregular heart rate, lightheadedness , peripheral edema RESPIRATORY: Present: shortness of breath, dyspnea with exertion Absent: cough, orthopnea, wheezing, stridor, hemoptysis GASTROINTESTINAL: Absent: abdominal pain, abdominal distension, nausea, vomiting, diarrhea, constipation, melena, hematochezia GENITOURINARY: Absent: dysuria, frequency, urgency, hesitancy, hematuria, flank pain, genital pain MUSCULOSKELETAL: Absent: myalgia, arthralgia, joint swelling, back pain, neck pain SKIN: Absent: rash, itching, pallor HEMATOLOGIC/IMMUNOLOGIC: Absent: easy bleeding, easy bruising, lymphadenopathy, frequent infections ENDOCRINE: Absent: unexplained weight gain, unexplained weight loss, heat intolerance, cold intolerance NEUROLOGIC: Absent: headache, focal weakness or paresthesias, dizziness, unsteady gait, seizure, mental status changes, bladder or bowel incontinence PSYCHIATRIC: Absent: anxiety, depression, suicidal or homicidal ideation, hallucinations. PHYSICAL EXAMINATION Vital Signs - 24 hr 3 09/28/16 09/28/16 09/28/16 09/28/16 17:20 20:18 21:36 22:49 Temperature 98.5 F 99.2 Pulse Rate 79 70 Pulse Rate [ 73 Apical] Respiratory 16 16 16 18 Rate Blood Pressure 153/83 117/49 Blood Pressure 146/69 [Arm] O2 Sat by Pulse 100 100 100 98 Oximetry (%) GENERAL: Awake, alert, and fully oriented, in no acute distress. HEAD: Normal with no signs of trauma. EYES: Pupils equal, round and reactive to light, extraocular movements intact, sclera anicteric, conjunctiva clear. No lid lag. EARS, NOSE, THROAT: Ears normal, nares patent, oropharynx clear without exudates. Moist mucous membranes. NECK: Normal range of motion, supple without lymphadenopathy, JVD, or masses. LUNGS: Breath sounds equal, clear to auscultation bilaterally. No wheezes, and no crackles. No accessory muscle use. HEART: Regular rate and rhythm, normal S1 and S2 without rub or gallop. +2/6 MIAN 3rd ICS LSB ABDOMEN: Soft, nontender, not distended, normoactive bowel sounds, no guarding, no rebound, no masses. No hepatomegaly or splenomegaly. MUSCULOSKELETAL: Normal range of motion at all joints. No bony deformities or tenderness. No CVA tenderness. UPPER EXTREMITIES: 2+ pulses, warm, well-perfused. No cyanosis. No clubbing. No peripheral edema. LOWER EXTREMITIES: 2+ pulses, warm, well-perfused. No calf tenderness. tr edema LLE NEUROLOGICAL: Cranial nerves II-XII intact. Normal speech. Normal gait. PSYCHIATRIC: Cooperative. Good eye contact. Appropriate mood and affect. SKIN: Warm, dry, normal turgor, no rashes or lesions noted, normal capillary refill. Laboratory Results - last 24 hr 3 09/28/16 09/28/16 09/28/16 17:31 18:01 18:01 WBC 7.9 RBC 4.31 Hgb 13.2 Hct 38.2 MCV 88.4 MCH 30.5 MCHC 34.5 RDW 13.5 Plt Count 190 D MPV 10.3 Neutrophils % 50.9 Lymphocytes % 33.9 Monocytes % 9.6 Eosinophils % 4.1 Basophils % 1.5 INR Cancelled PTT (Actin FS) Sodium Potassium Chloride Carbon Dioxide Anion Gap BUN Creatinine Creat Clearance w eGFR Random Glucose Calcium Total Bilirubin AST ALT Alkaline Phosphatase Creatine Kinase Troponin I Total Protein Albumin Urine Color Yellow Urine Appearance Sl cloudy Urine pH 7.0 Ur Specific Howell 1.015 Urine Protein 1+ H Urine Glucose (UA) Negative Urine Ketones Negative Urine Blood 2+ H Urine Nitrite Negative Urine Bilirubin Negative Urine Urobilinogen 0.2 Ur Leukocyte Esterase 3+ H Urine RBC 20-30 Urine WBC 40-60 Ur Epithelial Cells Few Amorphous Urates Few Urine Bacteria Few 3 09/28/16 09/28/16 09/28/16 18:41 18:41 18:41 WBC RBC Hgb Hct MCV MCH MCHC RDW Plt Count MPV Neutrophils % Lymphocytes % Monocytes % Eosinophils % Basophils % INR 1.11 PTT (Actin FS) 32.5 Sodium 135 L Potassium 4.7 D Chloride 105 Carbon Dioxide 25 Anion Gap 5 L BUN 29 H D Creatinine 1.2 D Creat Clearance w eGFR 59.02 Random Glucose 153 H Calcium 9.6 Total Bilirubin 0.5 AST 19 ALT 9 L Alkaline Phosphatase 83 Creatine Kinase 78 Troponin I < 0.03 L Total Protein 6.7 Albumin 3.9 Urine Color Urine Appearance Urine pH Ur Specific Howell Urine Protein Urine Glucose (UA) Urine Ketones Urine Blood Urine Nitrite Urine Bilirubin Urine Urobilinogen Ur Leukocyte Esterase Urine RBC Urine WBC Ur Epithelial Cells Amorphous Urates Urine Bacteria Radiology Results Chest CT angiography Clinical information: evaluate for pulmonary embolism; dyspnea Multiplanar imaging was performed following the intravenous bolus administration of nonionic contrast. Evaluation of the lower lobe segmental and subsegmental vessels is somewhat limited due to respiratory motion artifact. A small intraluminal defect is seen within the posterior basal segmental artery of the right lower lobe consistent with embolism. There is no definite evidence of central pulmonary embolism. No evidence of pneumothorax, infiltrate or pleural effusion. There is no definite cardiac enlargement. No pericardial effusion is seen. There is no discrete lymphadenopathy. No aortic aneurysm is identified. The visualized osseous structures demonstrate no obvious CT evidence of acute pathology or neoplastic disease. There is no obvious pulmonary nodule allowing for motion artifact. Impression: Right lower lobe segmental pulmonary embolism. Reported By: Kieran Bai MD 09/28/162023 ECG NSR, vent rate @ 73 left axis deviation incomplete RBBB no acute ST/T wave changes ASSESSMENT/PLAN: 76yM with PMH DVT, DM, recent spinal fusion presented to the ED with a 3 day h/ o SOB, especially on exertion. Workup revealed PE. He is being admitted for same. Pulmonary Embolism - started on lovenox 100mg SC q12h - since this is not a failure of xarelto as the pt was not actually taking it , pt could resume same - echocardiogram in am DM - hold glucovance as pt received IV contrast - BGM TID AC with novolog SS - A1C in am Abnormal U/A - repeat ordered with c/s CKD stage 2 - as per history - will give IVF x 1 day post IV contrast infusion. NS @ 75cc/hr DVT ppx - on full dose lovenox FEN - pt tolerating po fluids - bMP in am - diabetic diet Dispo : pt currently requires inpatient monitoring for management of his emergent condition. Visit type - Emergency Visit Emergency Visit: Yes ED Registration Date: 09/28/16 Care time: The patient presented to the Emergency Department on the above date and was hospitalized for further evaluation of their emergent condition. - New Patient This patient is new to me today: Yes Date on this admission: 09/28/16 - Critical Care Critical Care patient: No
[2016-09-29] MEDS: INSULIN SLIDING SCALE (NOVOLOG) 1 VIAL SQ SCH (07:00)
[2016-09-29 08:44] LABS: BASOPHIL 0.2 % (0-2.0); EOSINOPHIL 3.9 % (0-4.5); MCHC 32.9 g/dl (32.0-35.9); MEAN CELL VOLUME 91.1 fl (80-96); MEAN PLT VOLUME 9.8 fl (7.5-11.1); NEUTROPHILS 47.1 % (42.8-82.8); PLATELET COUNT 175 K/MM3 (134-434); RDW 13.2 % (11.9-15.9); WHITE BLOOD COUNT 7.5 K/mm3 (4.0-10.8)
[2016-09-29 08:58] LABS: ANION GAP 7 (8-16); CALCIUM 9.7 mg/dl (8.4-10.2); CO2 25 mmol/L (22-28); GLUCOSE,RANDOM 170 mg/dl (74-106); MAGNESIUM 1.8 mg/dL (1.8-2.4); PHOSPHOROUS 3.4 mg/dl (2.5-4.6)
[2016-09-29] MEDS: ENOXAPARIN NA (PORCINE) 100 MG/1 ML DISP.SYRIN SQ SCH ×2 (09:57→21:28)
--- NOTE | 2016-09-29 10:07 | PN ---
Physical Exam: SUBJECTIVE: Patient seen and examined, reports a decrease of dyspnea upon exertion. OBJECTIVE: Patient is a 76 y/o male with a past medical history of CKD II, BPH , NIDDM, DVT (03/30, IVC filter). patient is s/p lumbar fusion (08/28). Patient was admitted from the emergency department for a right lower lobe pulmonary embolism Vital Signs Period Temp Pulse Resp BP Sys/Norman Pulse Ox Last 24 Hr 98.0 F-99.2 F 68-70 18-18 117-149/49-49 94-98 GENERAL: The patient is awake, alert, and fully oriented, in no acute distress. HEAD: Normal with no signs of trauma. EYES: PERRL, extraocular movements intact, sclera anicteric, conjunctiva clear. No ptosis. ENT: Ears normal, nares patent, oropharynx clear without exudates, moist mucous membranes. NECK: Trachea midline, full range of motion, supple. LUNGS: Breath sounds equal, clear to auscultation bilaterally, no wheezes, no crackles, no accessory muscle use. HEART: Regular rate and rhythm, S1, S2, 3/6 systolic murmur, rub or gallop. ABDOMEN: Soft, nontender, nondistended, normoactive bowel sounds, no guarding, no rebound, no hepatosplenomegaly, no masses. EXTREMITIES: 2+ pulses, warm, well-perfused, left lower extremity +1 edema NEUROLOGICAL: Cranial nerves II through XII grossly intact. Normal speech, gait not observed. PSYCH: Normal mood, normal affect. SKIN: Warm, dry, normal turgor, no rashes or lesions noted, midline lumbar/ sacral surgical site, well approximated. Laboratory Results - last 24 hr 09/29/16 09/29/16 09/29/16 06:21 08:00 08:00 WBC 7.5 RBC 4.48 Hgb 13.4 Hct 40.9 MCV 91.1 MCH 30.0 MCHC 32.9 RDW 13.2 Plt Count 175 MPV 9.8 Neutrophils % 47.1 Lymphocytes % 43.0 H D Monocytes % 5.8 Eosinophils % 3.9 Basophils % 0.2 Sodium 136 Potassium 4.3 Chloride 104 Carbon Dioxide 25 Anion Gap 7 L BUN 22 H D Creatinine 1.0 POC Glucometer 169 Random Glucose 170 H Calcium 9.7 Phosphorus 3.4 Magnesium 1.8 Active Medications Generic Name Dose Route Start Last Admin Trade Name Freq PRN Reason Stop Dose Admin Enoxaparin Sodium 100 mg 09/28/16 22:45 09/29/16 09:57 Lovenox - SQ 100 mg BID ELMO Administration Sodium Chloride 1,000 mls @ 75 mls/hr 09/28/16 23:45 09/29/16 00:00 Normal Saline - IV 75 mls/hr ASDIR ELMO Administration Insulin Aspart 1 vial 09/29/16 07:00 09/29/16 07:00 Novolog Vial Sliding Scale - SQ Not Given [facility] Protocol Radiology Results Chest CT angiography-Impression: Right lower lobe segmental pulmonary embolism. Reported By: Kieran Bai MD 09/28/162023 ECG NSR, vent rate @ 73 left axis deviation incomplete RBBB no acute ST/T wave changes ASSESSMENT/PLAN: 1) pulm Pulmonary Embolism - continue lovenox 100mg SC q12h - pt had a ivc placed on 03/30, reports not resuming xarelto postoperatively, questionable underlying malignancy, appreciate the input of heme/onc (Marlyn) - pending ECHO and bilateral lower extremity doppler - appreciate the input of pulmonary - 2) endo NIDDM - hold glucovance pt received contrast (09/28) - BGM TID AC with novolog SS 3) CKD stage 2 - creatine 1.0 baseline 0.9 - avoid nephrotoxic agents DVT ppx - on full dose lovenox FEN - pt tolerating po fluids - bMP in am - diabetic diet Dispo : pt currently requires inpatient monitoring for management of his emergent condition. Visit type - Emergency Visit Emergency Visit: Yes ED Registration Date: 09/28/16 Care time: The patient presented to the Emergency Department on the above date and was hospitalized for further evaluation of their emergent condition. - New Patient This patient is new to me today: Yes Date on this admission: 09/29/16 - Critical Care Critical Care patient: No - Discharge Referral Referred to [facility] Med P.C.: No
--- NOTE | 2016-09-29 10:48 | PN ---
Progress Note (short form) - Note Progress Note: PULMONARY CONSULTATION DICTATED 09/29/16 IMP DYSPNEA ACUTE PULMONARY EMBOLISM ? PROVOKED H/O DVT S/P IVC FILTER DM S/P L4-L5 LAMINECTOMY PLAN HEPARIN ECHO NASAL O2 W/U FOR HYPERCOAGULABLE STATE DUPLEX LOWER EXT DR VELÁSQUEZ Problem List - Problems (1) Pulmonary embolism Code(s): I26.99 - OTHER PULMONARY EMBOLISM WITHOUT ACUTE COR PULMONALE Qualifiers: Pulmonary embolism type: other Chronicity: acute Acute cor pulmonale presence: without acute cor pulmonale Qualified Code(s): I26.99 - Other pulmonary embolism without acute cor pulmonale (2) Shortness of breath Code(s): R06.02 - SHORTNESS OF BREATH (3) Deep vein thrombosis (DVT) of left lower extremity Code(s): I82.402 - ACUTE EMBOLISM AND THOMBOS UNSP DEEP VEINS OF L LOW EXTREM (4) Lumbar stenosis Code(s): M48.06 - SPINAL STENOSIS, LUMBAR REGION
--- NOTE | 2016-09-29 14:27 | EKG ---
Test Reason : Blood Pressure : / mmHG Vent. Rate : 073 BPM Atrial Rate : 073 BPM P-R Int : 156 ms QRS Dur : 096 ms QT Int : 390 ms P-R-T Axes : 069 -40 071 degrees QTc Int : 429 ms SINUS RHYTHM RSR' OR QR PATTERN IN V1 SUGGESTS RIGHT VENTRICULAR CONDUCTION DELAY LEFT ANTERIOR FASCICULAR BLOCK NONSPECIFIC T WAVE ABNORMALITY ABNORMAL ECG NO PREVIOUS ECGS AVAILABLE Confirmed by LINH FIGUEROA, CELESTINO ([id number]) on 09/29/2016 2:27:40 PM Referred By: DR HILTON Confirmed By:CELESTINO MELTON MD
--- NOTE | 2016-09-29 20:41 | CONS ---
DATE OF CONSULTATION: 09/29/2016 PULMONARY CONSULTATION REFERRING PHYSICIAN: Chelsie Cheung N.P. HISTORY OF PRESENT ILLNESS: The patient is a 76-year-old black male with a past medical history of deep vein thrombosis diagnosed in March 2016, history of spinal stenosis status post L4-L5 laminectomy in March 2016, also history of diabetes mellitus, as well as a repeat laminectomy L4-L5 in August of 2016, and spinal fusion in August of 2016, admitted to [facility] with complaint of 3-day history increasing shortness of breath. Patient presented to the emergency room. In the emergency room, he complained of shortness of breath and dyspnea on exertion which is new to him. He is a nonsmoker. There is no history of occupational exposures. Patient underwent a CTA of the chest which revealed right lower lobe segment pulmonary embolism. He is admitted to the floor on anticoagulation. As stated before, he has a history of DVT in March of 2016. This patient at the time was preoperative for L4-L5 laminectomy. He underwent a duplex revealed the DVT at which point the IVC filter was placed and the patient had surgery the following day. Patient was discharged home on Xarelto. He apparently was doing well until the most recent surgery in August when he underwent a spinal fusion. Xarelto was discontinued 4 days prior to admission but apparently was not restarted postoperative. Patient denies prior to initial surgery, denied any sedentary lifestyle, prolonged bedrest or recent travel. There is no apparent history of DVT or PE in the past. PAST MEDICAL HISTORY: Again includes diabetes, DVT status post IVC filter, spinal fusion and L4-5 laminectomy. REVIEW OF SYSTEMS: Positive dyspnea. No orthopnea. No chest pain. No palpitations. No cough. No hemoptysis. No abdominal pain. No lower extremity edema. CURRENT MEDICATIONS: Include Lovenox, normal saline and Novolog. PHYSICAL EXAMINATION: General: The patient is a well-developed, well-nourished male awake, alert, in no acute distress. Vital signs: He is afebrile. Blood pressure 114/49, respiratory rate 18, O2 saturation 94% on room air. HEENT: Head is normocephalic, atraumatic. Neck: Supple. Heart: Regular. S1, S2. Chest: Clear. Abdomen: Soft. Bowel sounds positive. Extremities: No cyanosis, edema. Chest CT reveals the right lower lobe. WBC 7.5, hemoglobin 13.4, hematocrit 40.9 with platelet count of 175,000. BUN 22, creatinine 1. Chest CT reveals the right lower lobe segmental pulmonary embolism. IMPRESSION: 1. Acute pulmonary embolism right lower lobe segment. 2. History of deep vein thrombosis status post inferior vena cava filter. 3. History of recent spinal fusion. 4. Status post history of diabetes. PLAN: Continue anticoagulation. Start workup for hypocoagulable state in view of recurrent DVT and recurrent PEs. Obtain echocardiogram. Also duplex lower extremities. Supplemental O2. DAVE VELÁSQUEZ M.D. [id number]
[2016-09-29] MEDS: SODIUM CHLORIDE 1,000 ML IV SCH ×2 (23:59)
[2016-09-30] MEDS: INSULIN SLIDING SCALE (NOVOLOG) 1 VIAL SQ SCH ×2 (06:47→11:36)
[2016-09-30] MEDS: ENOXAPARIN NA (PORCINE) 100 MG/1 ML DISP.SYRIN SQ SCH ×2 (09:18→21:35)
--- NOTE | 2016-09-30 09:31 | PN ---
Physical Exam: SUBJECTIVE: Patient seen and examined, reports feeling well and less dyspnea upon exertion. OBJECTIVE: Patient is a 76 y/o male with a past medical history of CKD II, BPH, NIDDM, DVT (03/30, IVC filter). patient is s/p lumbar fusion (08/28). Patient was admitted from the emergency department for a right lower lobe pulmonary embolism Vital Signs Period Temp Pulse Resp BP Sys/Norman Pulse Ox Last 24 Hr 98.2 F-98.5 F 54-58 18-18 148-160/65-69 97-99 GENERAL: The patient is awake, alert, and fully oriented, in no acute distress. HEAD: Normal with no signs of trauma. EYES: PERRL, extraocular movements intact, sclera anicteric, conjunctiva clear. No ptosis. ENT: Ears normal, nares patent, oropharynx clear without exudates, moist mucous membranes. NECK: Trachea midline, full range of motion, supple. LUNGS: Breath sounds equal, clear to auscultation bilaterally, no wheezes, no crackles, no accessory muscle use. HEART: Regular rate and rhythm, S1, S2, 3/6 systolic murmur, rub or gallop. ABDOMEN: Soft, nontender, nondistended, normoactive bowel sounds, no guarding, no rebound, no hepatosplenomegaly, no masses. EXTREMITIES: 2+ pulses, warm, well-perfused, left lower extremity +1 edema NEUROLOGICAL: Cranial nerves II through XII grossly intact. Normal speech, gait not observed. PSYCH: Normal mood, normal affect. SKIN: Warm, dry, normal turgor, no rashes or lesions noted, midline lumbar/ sacral surgical site, well approximated. Laboratory Results - last 24 hr 09/29/16 09/29/16 09/30/16 08:00 16:38 06:31 POC Glucometer 159 202 Hemoglobin A1c % 7.2 H Active Medications Generic Name Dose Route Start Last Admin Trade Name Freq PRN Reason Stop Dose Admin Enoxaparin Sodium 100 mg 09/28/16 22:45 09/30/16 09:18 Lovenox - SQ 100 mg BID ELMO Administration Sodium Chloride 1,000 mls @ 75 mls/hr 09/28/16 23:45 09/29/16 23:59 Normal Saline - IV Not Given ASDIR ELMO Insulin Aspart 1 vial 09/29/16 07:00 09/30/16 06:47 Novolog Vial Sliding Scale - SQ 4 units TIDAC ELMO Administration Protocol Radiology Results Chest CT angiography-Impression: Right lower lobe segmental pulmonary embolism. Reported By: Kieran Bai MD 09/28/162023 ECG NSR, vent rate @ 73 left axis deviation incomplete RBBB no acute ST/T wave changes ASSESSMENT/PLAN: 1) pulm Pulmonary Embolism - continue lovenox 100mg SC q12h - pt had a ivc placed on 03/30, reports not resuming xarelto postoperatively, questionable underlying malignancy appreciate the input of GI - appreciate the input of heme/onc (Marlyn) - ECHO, grade I diastolic dysfunction. LV WNL - ultrasound of bilateral dopplers, dvt of left lower extremity, involving the popliteal vein - pulmonary consulted and followed - 2) endo NIDDM - hold glucovance pt received contrast (09/28) - BGM TID AC with novolog SS 3) CKD stage 2 - creatine 1.0 baseline 0.9 - avoid nephrotoxic agents DVT ppx - on full dose lovenox FEN - pt tolerating po fluids - bMP in am - diabetic diet Dispo : pt currently requires inpatient monitoring for management of his emergent condition. Visit type - Emergency Visit Emergency Visit: Yes ED Registration Date: 09/28/16 Care time: The patient presented to the Emergency Department on the above date and was hospitalized for further evaluation of their emergent condition. - New Patient This patient is new to me today: Yes Date on this admission: 09/30/16 - Critical Care Critical Care patient: No - Discharge Referral Referred to [facility] Med P.C.: No
--- NOTE | 2016-09-30 10:05 | PN ---
Progress Note (short form) - Note Progress Note: Patient seen and chart reviewed with consult note to follow. Patient with PE and ?hypercoaguable state; to arrange for outpatient colonoscopy as part of workup to r/o malignancy (has not had colonoscopy in past ). Patient to followup in office.
--- NOTE | 2016-09-30 12:36 | PN ---
Progress Note, Physician History of Present Illness: PULMONARY Alert,nad,-cp,-sob. - Current Medication List Current Medications: Active Medications Enoxaparin Sodium (Lovenox -) 100 mg SQ BID [facility] Last Admin: 09/30/16 09:18 Dose: 100 mg Sodium Chloride (Normal Saline -) 1,000 mls @ 75 mls/hr IV ASDIR [facility] Last Admin: 09/29/16 23:59 Dose: Not Given Insulin Aspart (Novolog Vial Sliding Scale -) 1 vial SQ TIDAC [facility] PRN Reason: Protocol Last Admin: 09/30/16 11:36 Dose: 2 units - Objective Vital Signs: Vital Signs Temperature 98.3 F 09/30/16 05:53 Pulse Rate 57 L 09/30/16 05:53 Respiratory Rate 18 09/30/16 07:18 Blood Pressure 151/67 09/30/16 05:53 O2 Sat by Pulse Oximetry (%) 97 09/30/16 07:18 Constitutional: Yes: Well Nourished, Calm Eyes: Yes: WNL HENT: Yes: WNL Neck: Yes: WNL Cardiovascular: Yes: Regular Rate and Rhythm, S1, S2 Respiratory: Yes: CTA Bilaterally Gastrointestinal: Yes: Normal Bowel Sounds, Soft Extremities: Yes: WNL Edema: No Labs: CBC, BMP 09/29/16 08:00 09/29/16 08:00 INR, PTT INR 1.11 (0.82-1.09) 09/28/16 18:41 Problem List - Problems (1) Pulmonary embolism Code(s): I26.99 - OTHER PULMONARY EMBOLISM WITHOUT ACUTE COR PULMONALE Qualifiers: Pulmonary embolism type: other Chronicity: acute Acute cor pulmonale presence: without acute cor pulmonale Qualified Code(s): I26.99 - Other pulmonary embolism without acute cor pulmonale (2) Shortness of breath Code(s): R06.02 - SHORTNESS OF BREATH (3) Deep vein thrombosis (DVT) of left lower extremity Code(s): I82.402 - ACUTE EMBOLISM AND THOMBOS UNSP DEEP VEINS OF L LOW EXTREM (4) Lumbar stenosis Code(s): M48.06 - SPINAL STENOSIS, LUMBAR REGION Assessment/Plan IMP DYSPNEA ACUTE PULMONARY EMBOLISM ? PROVOKED H/O DVT S/P IVC FILTER DM S/P L4-L5 LAMINECTOMY PLAN XARELTO NASAL O2 W/U FOR HYPERCOAGULABLE STATE DR VELÁSQUEZ Problem List - Problems (1) Pulmonary embolism Code(s): I26.99 - OTHER PULMONARY EMBOLISM WITHOUT ACUTE COR PULMONALE Qualifiers: Pulmonary embolism type: other Chronicity: acute Acute cor pulmonale presence: without acute cor pulmonale Qualified Code(s): I26.99 - Other pulmonary embolism without acute cor pulmonale (2) Shortness of breath Code(s): R06.02 - SHORTNESS OF BREATH (3) Deep vein thrombosis (DVT) of left lower extremity Code(s): I82.402 - ACUTE EMBOLISM AND THOMBOS UNSP DEEP VEINS OF L LOW EXTREM (4) Lumbar stenosis Code(s): M48.06 - SPINAL STENOSIS, LUMBAR REGION
--- NOTE | 2016-09-30 21:01 | CONSULT ---
Consult Consult Specialty:: heme Referred by:: jann perry Reason for Consultation:: hypercoag state/PE - History of Present Illness Chief Complaint: sob History of Present Illness: 76 yom w h/o signif for first episode LE DVT 03/30. This was noted PRIOR to a scheduled laminenctomy and was mgd w placement of IVCF prior to surg and institution of xarelto post-op. He reports he remained fairly active prior to procedure and denies preceding travel or immobility. He is foll'd by hematology [facility], Dr. Yeager. He reports that a lab w/u was unremarkable and retrieval of IVCF was planned. He underwent spinal fusion last month and held xarelto 5d prior to the surg and was instructed not to resume it. Adm now w several days SOB/JIMENEZ; no CP and found to have PE and persistent LE dvt. No known FH of thrombophilia - History Source History Provided By: Patient, Family Member, Medical Record - Past Medical History Cardio/Vascular: Yes: Deep Vein Thrombosis Endocrine: Yes: Diabetes Mellitus - Alcohol/Substance Use Hx Alcohol Use: No - Smoking History Smoking history: Never smoked Have you smoked in the past 12 months: No Home Medications - Allergies Allergies/Adverse Reactions: Allergies Allergy/AdvReac Type Severity Reaction Status Date / Time No Known Drug Allergies Allergy Verified 09/28/16 17:21 - Home Medications Home Medications: Ambulatory Orders Glyburide/Metformin HCl [Glyburide-Metformin 2.5-500 mg] 1 each PO BID 03/16/16 Rivaroxaban [Xarelto] 20 mg PO DAILY #150 tab.ds.pk MDD 1 03/22/16 Family Disease History - Family Disease History Family Disease History: Other: Father (panc CA?) Review of Systems - Review of Systems Constitutional: reports: No Symptoms Cardiovascular: reports: No Symptoms Physical Exam Vital Signs: Vital Signs Temperature 98.3 F 09/30/16 05:53 Pulse Rate 57 L 09/30/16 05:53 Respiratory Rate 18 09/30/16 07:18 Blood Pressure 151/67 09/30/16 05:53 O2 Sat by Pulse Oximetry (%) 97 09/30/16 07:18 Constitutional: Yes: Well Nourished, No Distress Eyes: Yes: WNL HENT: Yes: WNL Neck: Yes: Supple Cardiovascular: Yes: Regular Rate and Rhythm Respiratory: Yes: CTA Bilaterally Gastrointestinal: Yes: Normal Bowel Sounds, Soft Edema: No Labs: CBC, BMP 09/29/16 08:00 09/29/16 08:00 Assessment/Plan hypercoag state acute sxs c/w acute PE post-op and despite IVCF while off a/c non-embolic? resume a/c obtain imaging w/u for malig and pursue age-appro screening (has not had colonoscopy) plan is for f/u w his primary receiving associate
[2016-09-30] MEDS ORDERED: SODIUM CHLORIDE 1,000 ML IV SCH (21:30)
[2016-10-01 05:59] VITALS: BP 155/72; PULSE 66; TEMP 98.6
[2016-10-01] MEDS: INSULIN SLIDING SCALE (NOVOLOG) 1 VIAL SQ SCH (06:53)
--- NOTE | 2016-10-01 07:33 | PN ---
Progress Note, Physician History of Present Illness: pulmonary alert,nad,-sob,-cp - Current Medication List Current Medications: Active Medications Enoxaparin Sodium (Lovenox -) 100 mg SQ BID [facility] Last Admin: 09/30/16 21:35 Dose: 100 mg Insulin Aspart (Novolog Vial Sliding Scale -) 1 vial SQ TIDAC [facility] PRN Reason: Protocol Last Admin: 10/01/16 06:53 Dose: 2 units - Objective Vital Signs: Vital Signs Temperature 98.6 F 10/01/16 05:58 Pulse Rate 66 10/01/16 05:58 Respiratory Rate 18 10/01/16 05:58 Blood Pressure 155/72 10/01/16 05:58 O2 Sat by Pulse Oximetry (%) 95 10/01/16 05:58 Constitutional: Yes: Well Nourished, Calm Eyes: Yes: WNL HENT: Yes: WNL Neck: Yes: WNL Cardiovascular: Yes: Regular Rate and Rhythm, S1, S2 Respiratory: Yes: CTA Bilaterally Gastrointestinal: Yes: Normal Bowel Sounds, Soft Extremities: Yes: WNL Edema: No Labs: CBC, BMP Problem List - Problems (1) Pulmonary embolism Code(s): I26.99 - OTHER PULMONARY EMBOLISM WITHOUT ACUTE COR PULMONALE Qualifiers: Pulmonary embolism type: other Chronicity: acute Acute cor pulmonale presence: without acute cor pulmonale Qualified Code(s): I26.99 - Other pulmonary embolism without acute cor pulmonale (2) Shortness of breath Code(s): R06.02 - SHORTNESS OF BREATH (3) Deep vein thrombosis (DVT) of left lower extremity Code(s): I82.402 - ACUTE EMBOLISM AND THOMBOS UNSP DEEP VEINS OF L LOW EXTREM (4) Lumbar stenosis Code(s): M48.06 - SPINAL STENOSIS, LUMBAR REGION Assessment/Plan IMP DYSPNEA ACUTE PULMONARY EMBOLISM ? PROVOKED H/O DVT S/P IVC FILTER DM S/P L4-L5 LAMINECTOMY PLAN XARELTO NASAL O2 W/U FOR HYPERCOAGULABLE STATE DR VELÁSQUEZ Problem List - Problems (1) Pulmonary embolism Code(s): I26.99 - OTHER PULMONARY EMBOLISM WITHOUT ACUTE COR PULMONALE Qualifiers: Pulmonary embolism type: other Chronicity: acute Acute cor pulmonale presence: without acute cor pulmonale Qualified Code(s): I26.99 - Other pulmonary embolism without acute cor pulmonale (2) Shortness of breath Code(s): R06.02 - SHORTNESS OF BREATH (3) Deep vein thrombosis (DVT) of left lower extremity Code(s): I82.402 - ACUTE EMBOLISM AND THOMBOS UNSP DEEP VEINS OF L LOW EXTREM (4) Lumbar stenosis Code(s): M48.06 - SPINAL STENOSIS, LUMBAR REGION
[2016-10-01 08:20] LABS: ANION GAP 6 (8-16); CALCIUM 9.3 mg/dl (8.4-10.2); CO2 24 mmol/L (22-28); CREATININE 0.8 mg/dl (0.6-1.3); GLUCOSE,RANDOM 196 mg/dl (74-106)
[2016-10-01 08:31] LABS: BASOPHIL 0.9 % (0-2.0); EOSINOPHIL 5.1 % (0-4.5); MCH 30.3 pg (25.7-33.7); MCHC 33.4 g/dl (32.0-35.9); MEAN CELL VOLUME 90.9 fl (80-96); MEAN PLT VOLUME 9.2 fl (7.5-11.1); NEUTROPHILS 43.5 % (42.8-82.8); PLATELET COUNT 155 K/MM3 (134-434); RDW 13.3 % (11.9-15.9); WHITE BLOOD COUNT 6.7 K/mm3 (4.0-10.8)
[2016-10-01] MEDS: ENOXAPARIN NA (PORCINE) 100 MG/1 ML DISP.SYRIN SQ SCH (09:28)
--- NOTE | 2016-10-01 11:27 | DS ---
Physical Exam: SUBJECTIVE: Patient seen and examined, patient reports feeling better denies any chest pain or shortness of breath. OBJECTIVE: This is a 76 year old male with a past medical history of diabetes, DVT and recent spinal fusion presented with SOB x 3 days. Pt reports that on Tuesday he started noticing he would get SOB on exertion: walking around house or upstairs. Pt denies chest pain, palpitations, N/V/D. Pt reports mild edema LLE ever since DVT, sometimes edema worse than others. Pt also reports that prior to his spinal fusion on 08/23 he was on xarelto. He stopped his xarelto 4 days prior to surgery but he was never told to restart it and as such has been off his xarelto since. ER course was notable for: (1) CTA c/w PE Vital Signs Period Temp Pulse Resp BP Sys/Norman Pulse Ox Last 24 Hr 98.3 F-98.6 F 54-66 18-18 155-160/70-72 95-97 PHYSICAL EXAM GENERAL: The patient is awake, alert, and fully oriented, in no acute distress. HEAD: Normal with no signs of trauma. EYES: PERRL, extraocular movements intact, sclera anicteric, conjunctiva clear. No ptosis. ENT: Ears normal, nares patent, oropharynx clear without exudates, moist mucous membranes. NECK: Trachea midline, full range of motion, supple. LUNGS: Breath sounds equal, clear to auscultation bilaterally, no wheezes, no crackles, no accessory muscle use. HEART: Regular rate and rhythm, S1, S2, 3/6 systolic murmur, rub or gallop. ABDOMEN: Soft, nontender, nondistended, normoactive bowel sounds, no guarding, no rebound, no hepatosplenomegaly, no masses. EXTREMITIES: 2+ pulses, warm, well-perfused, left lower extremity +1 edema NEUROLOGICAL: Cranial nerves II through XII grossly intact. Normal speech, gait not observed. PSYCH: Normal mood, normal affect. SKIN: Warm, dry, normal turgor, no rashes or lesions noted, midline lumbar/ sacral surgical site, well approximated. LABS Laboratory Results - last 24 hr 09/30/16 09/30/16 10/01/16 11:31 21:28 05:16 WBC RBC Hgb Hct MCV MCH MCHC RDW Plt Count MPV Neutrophils % Lymphocytes % Monocytes % Eosinophils % Basophils % Sodium Potassium Chloride Carbon Dioxide Anion Gap BUN Creatinine POC Glucometer 153 200 200 Random Glucose Calcium 10/01/16 10/01/16 07:45 07:45 WBC 6.7 RBC 4.22 Hgb 12.8 Hct 38.3 MCV 90.9 MCH 30.3 MCHC 33.4 RDW 13.3 Plt Count 155 MPV 9.2 Neutrophils % 43.5 Lymphocytes % 43.1 H Monocytes % 7.4 Eosinophils % 5.1 H Basophils % 0.9 D Sodium 138 Potassium 3.9 Chloride 108 H Carbon Dioxide 24 Anion Gap 6 L BUN 15 D Creatinine 0.8 POC Glucometer Random Glucose 196 H Calcium 9.[address] angiography-Impression: Right lower lobe segmental pulmonary embolism. Reported By: Kieran Bai MD 09/28/162023 ct of abd/pelvis w/contrast: mild thickening of gallbladder no acute cholecystitis noted. ultrasound of bilateral dopplers, dvt of left lower extremity, involving the popliteal vein ECG NSR, vent rate @ 73 left axis deviation incomplete RBBB no acute ST/T wave changes HOSPITAL COURSE: * pulmonary Embolism, treated with lovenox 100mg SC q12h * pt reports he has never had a colonscopy, he declines a colonscopy at this time, gi Dr Herman was consulted * ECHO, grade I diastolic dysfunction. LV WNL * pulmonary (Felipe) and hematology (Marlyn) was consulted and followed * glucovance held pt received contrast 09/28 and 09/30-->- BGM TID AC with novolog SS * CKD stage 2, creatine 0.8 baseline 0.9 Date of Admission:09/28/16 Date of Discharge: 10/01/16 Minutes to complete discharge: 45 Discharge Summary Reason For Visit: PULMONARY EMB. Current Active Problems Pulmonary embolism (Acute) Shortness of breath (Acute) Condition: Improved - Instructions Diet, Activity, Other Instructions: restart xarelto this evening, you are prescribed xarelto 15mg twice a day for 3 weeks because you have a acute pulmonary embolism after the three weeks continue taking xarelto daily please hold your glyburide/metforim until 10/03/16 because you received IV contrast frequent amounts of fluids throughout the day resume your diabetic diet please follow up with your primary care physician and risk assessment analyst within 1 week Please follow up with the it operations specialist within 3 weeks if any new or persistent symptoms develop please return to the emergency department Referrals: Lan Cline MD [Staff Physician] - Percy Herman MD [Staff Physician] - Disposition: VNS/HOME HEALTH CARE - Home Medications Comprehensive Discharge Medication List: Ambulatory Orders Glyburide/Metformin HCl [Glyburide-Metformin 2.5-500 mg] 1 each PO BID 03/16/16 Rivaroxaban [Xarelto] 20 mg PO DAILY #150 tab.ds.pk MDD 1 03/22/16 This patient is new to me today: No Emergency Visit: Yes ED Registration Date: 09/28/16 Care time: The patient presented to the Emergency Department on the above date and was hospitalized for further evaluation of their emergent condition. Critical Care patient: No - Discharge Referral Referred to [facility] Med P.C.: No
--- NOTE | 2016-10-01 14:51 | CONS ---
DATE OF CONSULTATION: 09/30/2016 REASON FOR CONSULTATION: Asked to evaluate this 76-year-old gentleman for possible underlying colon cancer or malignancy. HISTORY OF PRESENT ILLNESS: The patient is a 76-year-old gentleman with a history of diabetes mellitus and a recent diagnosis of pulmonary embolism. He also has a history of hypertension, hyperlipidemia, and is status post laminectomy earlier this year complicated by a left leg DVT. He was initially placed on anticoagulation which eliminated the initial DVTs but off of the blood thinner has had a recurrent DVT and pulmonary embolism. The question of an underlying malignancy has been raised. The patient states he has a good appetite and stable weight and has regular bowel movements daily. He has not had a colonoscopy to date. There is no family history of GI illness or malignancy. PHYSICAL EXAMINATION:General: The patient is a well-developed, well-nourished gentleman. HEENT: With pink conjunctivae. Lungs: Clear. Cardiac: Regular rate and rhythm. Abdomen: A soft, flat abdomen with normoactive bowel sounds and no tenderness. LABORATORY TESTS: Include a white count of 7.5, hemoglobin of 13.4, with a hematocrit of 40.9 and normal red cell indices. His chemistries are notable for normal electrolytes. ASSESSMENT: Patient may have an underlying malignancy as the etiology of his apparent hypercoagulable state with development of deep vein thromboses and a pulmonary embolism. An elective colonoscopy would be suggested as part of his workup and this can be performed as an outpatient postdischarge. Will follow as needed and patient given my office information to schedule an outpatient appointment. MICHELET SEQUEIRA M.D. LUIS MIGUEL/[id number]
== END 2016-10-01 13:09 | disposition home health service (06) | DRG 176 ==
LOC: FER 17:19 → FM/S 21:36
PROVIDERS: ADMIT Internal Medicine; ATTEND Nurse Practitioner Family
DX: I26.99 Other pulmonary embolism without acute cor pulmonale (principal); D68.69 Other thrombophilia; I45.19 Other right bundle-branch block; E78.5 Hyperlipidemia, unspecified; I12.9 Hypertensive chronic kidney disease with stage 1 through stage 4 chronic kidney disease, or unspecified chronic kidney disease; N18.2 Chronic kidney disease, stage 2 (mild); E11.22 Type 2 diabetes mellitus with diabetic chronic kidney disease; N40.0 Benign prostatic hyperplasia without lower urinary tract symptoms; M48.06 Spinal stenosis, lumbar region; Z86.718 Personal history of other venous thrombosis and embolism; Z79.01 Long term (current) use of anticoagulants
CPT/HCPCS: 36415; 71020-TC; 71275-TC; 74177-TC; 80048; 80053; 81003; 81015; 82550; 83036; 83735; 84100; 84484; 85025; 85610; 85730; 93005; 93306-TC; 93970-TC; 99283-25